=== PATIENT | female | born 1975 | race Caucasian/White ===

== ENCOUNTER 2023-12-26 12:19 | Emergency (ER) | payer SELFPAY ==
[~2023-12-26] VITALS: Ht 165.1 cm; Wt 61.8 kg
[2023-12-26 12:26] VITALS: BP 175/82; TEMP 98
[2023-12-26 13:30] VITALS: PULSE 75
== END 2023-12-26 13:30 | disposition home or self-care (01) ==
LOC: COL.ER 12:19
DX: S01.81XA Laceration without foreign body of other part of head, initial encounter (principal); W22.8XXA Striking against or struck by other objects, initial encounter; Y93.01 Activity, walking, marching and hiking; Y92.520 Airport as the place of occurrence of the external cause